=== PATIENT | female | born 1955 | race African-American/Black ===

== ENCOUNTER 2016-08-07 11:56 | Emergency (ER) | payer OTHER ==
--- NOTE | 2016-08-07 12:21 | ER Document Report ---
ED Medical Screen (RME) - General Stated Complaint: LEFT ANKLE PAIN Notes: 61 yo female c/o left ankle pain since falling [place]. Brought to ED by mobile crisis for concerns of patient safety. patient reports people breaking in home, taking things. 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 was recently placed in assisted in April, pt presently lives alone. TRAVEL OUTSIDE OF THE [place] IN LAST 30 DAYS: No - Related Data Allergies/Adverse Reactions: egg [Egg] Allergy (Verified 05/15/16 13:47) Penicillins Allergy (Verified 05/15/16 13:47) Past Medical History - Past Medical History Cardiac Medical History: Reports: Hx Hypertension Denies: Hx Coronary Artery Disease, Hx DVT, Hx Heart Attack, Hx Hypercholesterolemia, Hx Pulmonary Embolism Pulmonary Medical History: Reports: Hx COPD Neurological Medical History: Denies: Hx Seizures Endocrine Medical History: Reports: Hx Diabetes Mellitus Type 2, Hx Hypothyroidism. Denies: Hx Hyperthyroidism Renal/ Medical History: Reports: Hx Kidney Stones Malignancy Medical History: Reports: Hx Colorectal Cancer, Hx Lung Cancer GI Medical History: Denies: Hx Cirrhosis, Hx Gastroesophageal Reflux Disease, Hx Hepatitis Musculoskeltal Medical History: Reports Hx Arthritis Skin Medical History: Denies Hx Eczema, Denies Hx Psoriasis Infectious Medical History: Denies: Hx Hepatitis Past Surgical History: Reports: Hx Bowel Surgery, Hx Section - x2, Hx Hysterectomy, Hx Thyroid Surgery - Thyroidectomy - Immunizations Hx Diphtheria, Pertussis, Tetanus Vaccination: Yes Physical Exam - Vital signs Vitals: Temp Pulse Resp BP Pulse Ox 98.2 F 74 18 139/81 H 98 08/07/16 12:13 08/07/16 12:13 08/07/16 12:13 08/07/16 12:13 08/07/16 12:13 Course - Vital Signs Vital signs: Temp Pulse Resp BP Pulse Ox 98.2 F 74 18 139/81 H 98 08/07/16 12:13 08/07/16 12:13 08/07/16 12:13 08/07/16 12:13 08/07/16 12:13
--- NOTE | 2016-08-07 14:55 | EKG REPORT ---
SEVERITY:- ABNORMAL ECG - A-FLUTTER/FIBRILLATION W/ COMPLETE AV BLOCK LOW VOLTAGE THROUGHOUT : Confirmed by: Magnolia Arnold MD 07-Aug-2016 14:55:17
[2016-08-07 15:34] LABS: ABSOLUTE BASOPHILS # (AUTO) 0.1 10^3/uL (0.0-0.2); ABSOLUTE EOSINOPHILS # (AUTO) 0.2 10^3/uL (0.0-0.6); ABSOLUTE LYMPHOCYTES (AUTO) 2.8 10^3/uL (0.5-4.7); ABSOLUTE MONOCYTES (AUTO) 0.7 10^3/uL (0.1-1.4); ABSOLUTE NEUT (AUTO) 6.3 10^3/uL (1.7-8.2); EOSINOPHILS % (AUTO) 1.8 % (0-6); HEMATOCRIT 46.7 % (36.0-47.0); HEMOGLOBIN 14.9 g/dL (12.0-15.5); LYMPHOCYTES % (AUTO) 28.2 % (13-45); MEAN CORPUSCULAR HEMOGLOBIN 29.7 pg (27.0-33.4); MEAN CORPUSCULAR VOLUME 93 fl (80-97); MONOCYTES % (AUTO) 7.1 % (3-13); RED BLOOD COUNT 5.04 10^6/uL (3.72-5.28); RED CELL DISTRIBUTION WIDTH 14.5 % (11.5-14.0); SEGMENTED NEUTROPHILS % (AUTO) 61.9 % (42-78); WHITE BLOOD COUNT 10.1 10^3/uL (4.0-10.5)
[2016-08-07 15:46] LABS: ALANINE AMINOTRANSFERASE 27 U/L (9-52); ALBUMIN 4.5 g/dL (3.5-5.0); ALCOHOL < 10 mg/dL (NONE DETECTED); ALKALINE PHOSPHATASE 100 U/L (38-126); ANION GAP 12 (5-19); ASPARTATE AMINO TRANSFERASE 25 U/L (14-36); BILIRUBIN,TOTAL 0.6 mg/dL (0.2-1.3); BLOOD UREA NITROGEN 8 mg/dL (7-20); CALCIUM 10.5 mg/dL (8.4-10.2); CARBON DIOXIDE 25 mmol/L (22-30); CHLORIDE 106 mmol/L (98-107); GLUCOSE 87 mg/dL (75-110); POTASSIUM 4.6 mmol/L (3.6-5.0); SODIUM 143.4 mmol/L (137-145); TOTAL PROTEIN 7.7 g/dL (6.3-8.2)
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
[2016-08-07 17:52] LABS: APPEARANCE,URINE CLEAR; BILIRUBIN,URINE NEGATIVE (NEGATIVE); GLUCOSE, URINE NEGATIVE (NEGATIVE); KETONES,URINE NEGATIVE (NEGATIVE); LEUKOCYTE ESTERASE,URINE NEGATIVE (NEGATIVE); NITRITE,URINE NEGATIVE (NEGATIVE); PROTEIN,URINE NEGATIVE (NEGATIVE); URINE SPECIFIC GRAVITY 1.009; UROBILINOGEN,URINE NEGATIVE mg/dL (<2.0)
[2016-08-07 18:08] LABS: URINE BARBITURATES SCREEN NEGATIVE; URINE METHADONE SCREEN NEGATIVE; URINE OPIATES LOW NEGATIVE; URINE PHENCYCLIDINE SCREEN NEGATIVE
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
[2016-08-08] MEDS: DIVALPROEX SODIUM 250 MG TABLET.DR PO SCH (18:50)
--- NOTE | 2016-08-08 19:54 | ER Document Report ---
Doctor's Note Notes: 08/08/16 19:52 Patient has no physical complaints and is pleasant and cooperative with this examiner. She does also medially however begin discussing the people in her house that she thinks are trying to kill her. She has expressed no desire to kill herself denies any audio hallucinations and does not appear to have a homicidal ideations directed against any actual person. I'm concerned however that her hallucinations do pose a threat to others and I concur with mental health provider that we keep her here on IVC papers either until the hallucinations resolve or she can be discharged in the care of someone that can take responsibility for her and also remove any firearms from the house.
[2016-08-08] MEDS: BUSPIRONE HCL 10 MG TABLET PO SCH (23:55)
[2016-08-09] MEDS ORDERED: ACETAMINOPHEN 325 MG TABLET PO ONE ×2 (01:01→06:10)
[2016-08-09] MEDS: BUSPIRONE HCL 10 MG TABLET PO SCH ×2 (01:14→23:00)
[2016-08-09] MEDS: DIVALPROEX SODIUM 250 MG TABLET.DR PO SCH ×2 (09:49→18:24)
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
--- NOTE | 2016-08-09 15:58 | ER Document Report ---
Doctor's Note Notes: 08/09/16 15:58 Rounds: Chart reviewed and patient interviewed. Patient is being evaluated for mental status changes, paranoia, delusions, hallucinations. Vital signs have all been essentially normal. Lab studies have been essentially normal as well. Patient appears to be medically stable for transfer or discharge. Mental health has assessed the patient feels her problem is not psychiatric and have signed off on the case. I do not feel comfortable making a disposition of this patient based upon what I know at this time. Have spoken to mental health who will be here tomorrow, as will I, and hopefully we will resolve a disposition for this patient at that time. I am told that this patient's son is driving here from [place], [facility]. Faisal Bernal M.D.
[2016-08-10] MEDS: DIVALPROEX SODIUM 250 MG TABLET.DR PO SCH (11:52)
[2016-08-10 14:26] VITALS: BP 133/80
--- NOTE | 2016-08-10 14:28 | ER Document Report ---
Doctor's Note Notes: 08/10/16 14:25 Rounds: Chart reviewed and patient interviewed. Patient seems to be very lucid this morning. Carries on a normal conversation, answering questions appropriately. Vital signs are all normal. No new lab studies. Patient appears to be stable for transfer or discharge. Patient's son has arrived in [place] from [place]. We have worked out a discharge plan that has the son taking this patient to [place] to live with her sister there. Faisal Bernal M.D.
== END 2016-08-10 14:27 | disposition home or self-care (01) ==
LOC: ER 11:56
DX: F22 Delusional disorders (principal); M79.673 Pain in unspecified foot; M25.572 Pain in left ankle and joints of left foot; I10 Essential (primary) hypertension; J44.9 Chronic obstructive pulmonary disease, unspecified; E11.9 Type 2 diabetes mellitus without complications; Z85.118 Personal history of other malignant neoplasm of bronchus and lung; Z85.048 Personal history of other malignant neoplasm of rectum, rectosigmoid junction, and anus; Z88.0 Allergy status to penicillin; Z91.012 Allergy to eggs
CPT/HCPCS: 36415; 70450; 80053; 80307; 81001; 84443; 85025; 93005; 93010; 99285

== ENCOUNTER → 2017-01-03 | Outpatient (CLI) | payer OTHER ==
--- NOTE | 2017-01-06 13:50 | EEG PRO FEE REPORT ---
EEG INTERPRETATION PATIENT NAME: CHESTER MAURICIO ROOM#: ORDER#: [id number] DATE OF STUDY: 01/03/2017 : 1955 REFERRING MD: GIBRAN HODGE M.D. DIAGNOSIS: Dizziness REPORT This is a 16 channel EEG recording with a channel of EKG done during wakefulness, hyperventilation, photic stimulation, and early stages of sleep. Moderate artifact seen throughout the tracing. The background activity is 8-9 cycles per second, well formed and reactive alpha best seen in the posterior electrodes; beta 18-22 cycles per second, intermittent, nonlocalized or sustained slower forms seen. Hyperventilation, photic stimulation did not alter the tracing significantly more slowing seen as patient goes to early stages of sleep. IMPRESSION This EEG is within normal limits. INTERPRETING PHYSICIAN: MAHI MALIN M.D. /: MTEFETTA TT: 1345 ID: [id number] /: [id number] TD: [id number] JOB: [id number] cc:Keegan GOLDEN M.D. >
== END ==
LOC: NEURO 12:39
PROVIDERS: ATTEND Pediatrics
DX: R29.6 Repeated falls (principal); R42 Dizziness and giddiness
CPT/HCPCS: 95819

== ENCOUNTER 2018-02-28 23:15 | Emergency (ER) | payer OTHER ==
[2018-03-01] MEDS ORDERED: ACETAMINOPHEN 325 MG TABLET PO ONE (01:18)
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
[2018-03-01 02:19] VITALS: BP 119/74
== END 2018-03-01 02:17 | disposition home or self-care (01) ==
LOC: ER 23:15
DX: S51.812A Laceration without foreign body of left forearm, initial encounter (principal); S51.811A Laceration without foreign body of right forearm, initial encounter; S41.011A Laceration without foreign body of right shoulder, initial encounter; S00.81XA Abrasion of other part of head, initial encounter; Y00.XXXA Assault by blunt object, initial encounter; Y92.009 Unspecified place in unspecified non-institutional (private) residence as the place of occurrence of the external cause; R51 Headache; I10 Essential (primary) hypertension; J44.9 Chronic obstructive pulmonary disease, unspecified; Z85.048 Personal history of other malignant neoplasm of rectum, rectosigmoid junction, and anus; Z85.118 Personal history of other malignant neoplasm of bronchus and lung; Z91.012 Allergy to eggs; Z88.0 Allergy status to penicillin
CPT/HCPCS: 99284

== ENCOUNTER 2018-11-03 23:59 | Emergency (ER) | payer OTHER ==
[2018-11-04] MEDS ORDERED: PANTOPRAZOLE SODIUM 40 MG VIAL IV ONE (01:55)
[2018-11-04] MEDS ORDERED: ONDANSETRON HCL INJ/PF 4 MG/2 ML SDV IV ONE (01:55)
[2018-11-04] MEDS ORDERED: NORMAL SALINE 500 ML IV ONE (01:55)
[2018-11-04 02:32] LABS: HEMATOCRIT 47.1 % (36.0-47.0); HEMOGLOBIN 15.7 g/dL (12.0-15.5); MEAN CORPUSCULAR HEMOGLOBIN 31.8 pg (27.0-33.4); MEAN CORPUSCULAR HGB CONC 33.3 g/dL (32.0-36.0); MEAN CORPUSCULAR VOLUME 95 fl (80-97); PLATELET COUNT 243 10^3/uL (150-450); RED BLOOD COUNT 4.94 10^6/uL (3.72-5.28); RED CELL DISTRIBUTION WIDTH 13.8 % (11.5-14.0); WHITE BLOOD COUNT 16.7 10^3/uL (4.0-10.5)
[2018-11-04 02:53] LABS: ABSOLUTE LYMPHOCYTES# (MANUAL) 1.2 10^3/uL (0.5-4.7); ABSOLUTE MONOCYTES # (MANUAL) 0.3 10^3/uL (0.1-1.4); ABSOLUTE NEUTROPHILS# (MANUAL) 15.2 10^3/uL (1.7-8.2); BASOPHILS % (MANUAL) 0 % (0-2); EOSINOPHILS % (MANUAL) 0 % (0-6); LYMPHOCYTES % (MANUAL) 7 % (13-45); MONOCYTES % (MANUAL) 2 % (3-13); SEGMENTED NEUTROPHILS % (MAN) 91 % (42-78); TOTAL CELLS COUNTED 100
[2018-11-04 02:54] LABS: PLATELET COMMENT ADEQUATE; RBC MORPHOLOGY COMMENT NORMO-CYTIC/CHROMIC
[2018-11-04 02:58] LABS: ALANINE AMINOTRANSFERASE 41 U/L (9-52); ALBUMIN 4.2 g/dL (3.5-5.0); ALKALINE PHOSPHATASE 71 U/L (38-126); ANION GAP 11 (5-19); ASPARTATE AMINO TRANSFERASE 52 U/L (14-36); BILIRUBIN,DIRECT 0.4 mg/dL (0.0-0.4); BILIRUBIN,TOTAL 0.5 mg/dL (0.2-1.3); BLOOD UREA NITROGEN 13 mg/dL (7-20); CALCIUM 10.5 mg/dL (8.4-10.2); CARBON DIOXIDE 22 mmol/L (22-30); CHLORIDE 108 mmol/L (98-107); GLUCOSE 215 mg/dL (75-110); LIPASE 196.3 U/L (23-300); SODIUM 140.9 mmol/L (137-145); TOTAL PROTEIN 7.5 g/dL (6.3-8.2)
--- NOTE | 2018-11-04 04:03 | RADIOLOGY REPORT (SQ) ---
EXAM DESCRIPTION: US ABDOMEN DOPPLER LIMITED COMPLETED DATE/TME: 11/04/2018 03:07 CLINICAL HISTORY: 63 years, Female, RUQ abdominal pain COMPARISON: None. TECHNIQUE: Grayscale and color images of the abdomen LIMITATIONS: None. FINDINGS: The visualized portions of the pancreas, bowel aorta, and IVC appear unremarkable. The liver demonstrates increased echotexture. The liver is normal in shape measures 15 cm in size. The main portal vein is patent and demonstrates normal hepatopedal flow. The gallbladder is filled with stones with a wall echo shadow sign. The gallbladder wall measures up to 3 mm in thickness. No sonographic Aponte sign was elicited. The common bile duct is normal in caliber measuring up to 3 mm in diameter. The right kidney measures 10.8 x 3.9 x 4.9 cm. No hydronephrosis. IMPRESSION: Cholelithiasis. Fatty liver. copyright 2010 [employer]- All Rights Reserved
--- NOTE | 2018-11-04 04:19 | ER Document Report ---
ED General - General Chief Complaint: Abdominal Pain Stated Complaint: ABDOMINAL PAIN Time Seen by Provider: 11/04/18 01:44 Primary Care Provider: VELASQUEZ,ZARA [Primary Care Provider] - Follow up as needed TRAVEL OUTSIDE OF THE [place] IN LAST 30 DAYS: No - Related Data Allergies/Adverse Reactions: egg [Egg] Allergy (Verified 02/28/18 23:21) Penicillins Allergy (Verified 02/28/18 23:21) Past Medical History - Social History Smoking Status: Current Some Day Smoker Frequency of alcohol use: None Drug Abuse: None Family History: Reviewed & Not Pertinent Patient has suicidal ideation: No Patient has homicidal ideation: No - Past Medical History Cardiac Medical History: Reports: Hx Hypertension Denies: Hx Coronary Artery Disease, Hx DVT, Hx Heart Attack, Hx Hypercholesterolemia, Hx Pulmonary Embolism Pulmonary Medical History: Reports: Hx COPD Neurological Medical History: Denies: Hx Seizures Endocrine Medical History: Reports: Hx Diabetes Mellitus Type 2, Hx Hy pothyroidism. Denies: Hx Hyperthyroidism Renal/ Medical History: Reports: Hx Kidney Stones. Denies: Hx Peritoneal Dialysis Malignancy Medical History: Reports: Hx Colorectal Cancer, Hx Lung Cancer GI Medical History: Denies: Hx Cirrhosis, Hx Gastroesophageal Reflux Disease, Hx Hepatitis Musculoskeletal Medical History: Reports Hx Arthritis Skin Medical History: Denies Hx Eczema, Denies Hx Psoriasis Infectious Medical History: Denies: Hx Hepatitis Past Surgical History: Reports: Hx Bowel Surgery, Hx Section - x2, Hx Hysterectomy, Hx Thyroid Surgery - Thyroidectomy - Immunizations Hx Diphtheria, Pertussis, Tetanus Vaccination: Yes Physical Exam - Vital signs Vitals: Temp Pulse Resp BP Pulse Ox 98.1 F 115 H 20 145/97 H 94 11/04/18 00:42 11/04/18 00:42 11/04/18 00:42 11/04/18 00:42 11/04/18 00:42 Course - Re-evaluation Re-evalutation: 11/04/18 04:20 She has pain is resolved. Her nausea is gone. She is drinking water without any difficulty. She does have leukocytosis and some gallstones however her pain is resolved and she is tolerating p.o. and she has no evidence of cholecystitis on her ultrasound. I therefore feel she is safe to be discharged home. I talked her length about her gallstones and how this most likely this will cause her pain tonight. Informed her that she must avoid all fried foods and fatty foods. Informed her that she must follow-up with the surgery clinic. I told her that the surgery clinic phone number is under the name Dr. Patiño on her discharge paperwork. Encouraged to return to ER immediately if she has fevers, current pain, vomiting, or if she feels unwell in any way. Patient agrees with plan will be discharged home. Dictation of this chart was performed using voice recognition software; therefore, there may be some unintended grammatical errors. - Vital Signs Vital signs: Temp Pulse Resp BP Pulse Ox 98.1 F 115 H 20 145/97 H 94 11/04/18 00:42 11/04/18 00:42 11/04/18 00:42 11/04/18 00:42 11/04/18 00:42 - Laboratory Result Diagrams: 11/04/18 02:15 11/04/18 02:15 Laboratory results interpreted by me: 11/04/18 11/04/18 02:15 02:15 WBC 16.7 H Hgb 15.7 H Hct 47.1 H Seg Neuts % (Manual) 91 H Lymphocytes % (Manual) 7 L Monocytes % (Manual) 2 L Abs Neuts (Manual) 15.2 H Chloride 108 H Glucose 215 H Calcium 10.5 H AST 52 H Discharge - Discharge Clinical Impression: Cholelithiasis Qualifiers: Cholelithiasis location: gallbladder Cholecystitis presence: without cholecystitis Biliary obstruction: without biliary obstruction Qualified Code(s): K80.20 - Calculus of gallbladder without cholecystitis without obstruction Abdominal pain Qualifiers: Abdominal location: epigastric Qualified Code(s): R10.13 - Epigastric pain Condition: Good Disposition: HOME, SELF-CARE Additional Instructions: Your ultrasound shows that you have multiple stones in your gallbladder. Your gallbladder should be taken out electively. I have provided the phone number to the surgery clinic. The number is under the name "Dr. Rambo Patiño" in your discharge paperwork. Please call this number later today to make a follow- up appointment. You must avoid any foods that have fat. This includes fried foods. This includes most meats. Some fish are okay to eat. Please have a very low threshold to return to the ER if you have fevers, recurrent pain, recurrent vomiting, or if you feel unwell as the symptoms would be signs of an inflamed or infected gallbladder which would need to be removed immediately. Prescriptions: Ondansetron [Zofran Odt 4 mg Tablet] 1 tab PO Q4H PRN #15 tab.rapdis PRN Reason: For Nausea/Vomiting Referrals: RAMBO PATIÑO MD [ACTIVE STAFF] - Follow up in 3-5 days (call office this morning to make a follow up appointment.)
[2018-11-04 04:39] VITALS: BP 125/75
== END 2018-11-04 04:45 | disposition home or self-care (01) ==
LOC: ER 23:59
DX: K80.20 Calculus of gallbladder without cholecystitis without obstruction (principal); R10.13 Epigastric pain; R10.9 Unspecified abdominal pain; R11.0 Nausea; D72.829 Elevated white blood cell count, unspecified; F17.200 Nicotine dependence, unspecified, uncomplicated; I10 Essential (primary) hypertension; J44.9 Chronic obstructive pulmonary disease, unspecified; E11.9 Type 2 diabetes mellitus without complications
CPT/HCPCS: 99284; 96374; 96375; 36415; 83690; 85025; 80053; 76705; 93976; S0164; J2405; J7040; 96361

== ENCOUNTER 2019-08-12 15:38 | Emergency (ER) | payer OTHER ==
[2019-08-12] MEDS ORDERED: ASPIRIN 81 MG TABLET, CHEWABLE PO ONE (17:00)
--- NOTE | 2019-08-12 17:00 | ER Document Report ---
ED Medical Screen (RME) - General Chief Complaint: Headache Stated Complaint: BLEEDING FROM RIGHT EAR/HEADACHE Time Seen by Provider: 08/12/19 16:54 Primary Care Provider: VELASQUEZ,ZARA [Primary Care Provider] - Follow up as needed Mode of Arrival: Ambulatory Information source: Patient Notes: 64-year-old female presented to ED for right ear pain and bleeding x3 days. She states she also has a headache to the whole right side of her head down her neck. She states she also has chest pain with shortness of breath that comes and goes for the last couple days. She is states she has had this intermittently for about a year but has not got it checked out recently. Patient states she is seen at the [place] [facility]. She is alert oriented respirations regular nonlabored at this time. She does have a right otitis media. I have greeted and performed a rapid initial assessment of this patient. A comprehensive ED assessment and evaluation of the patient, analysis of test results and completion of medical decision making process will be conducted by an additional ED providers. TRAVEL OUTSIDE OF THE [place] IN LAST 30 DAYS: No - Related Data Allergies/Adverse Reactions: egg [Egg] Allergy (Verified 02/28/18 23:21) Penicillins Allergy (Verified 02/28/18 23:21) Past Medical History - Past Medical History Cardiac Medical History: Reports: Hx Hypertension Denies: Hx Coronary Artery Disease, Hx DVT, Hx Heart Attack, Hx Hyperch olesterolemia, Hx Pulmonary Embolism Pulmonary Medical History: Reports: Hx COPD Neurological Medical History: Denies: Hx Seizures Endocrine Medical History: Reports: Hx Diabetes Mellitus Type 2, Hx Hypothyroidism. Denies: Hx Hyperthyroidism Renal/ Medical History: Reports: Hx Kidney Stones. Denies: Hx Peritoneal Dialysis Malignancy Medical History: Reports: Hx Colorectal Cancer, Hx Lung Cancer GI Medical History: Denies: Hx Cirrhosis, Hx Gastroesophageal Reflux Disease, Hx Hepatitis Musculoskeltal Medical History: Reports Hx Arthritis Skin Medical History: Denies Hx Eczema, Denies Hx Psoriasis Infectious Medical History: Denies: Hx Hepatitis Past Surgical History: Reports: Hx Bowel Surgery, Hx Section - x2, Hx Hysterectomy, Hx Thyroid Surgery - Thyroidectomy - Immunizations Hx Diphtheria, Pertussis, Tetanus Vaccination: Yes Physical Exam - Vital signs Vitals: Temp Pulse Resp BP Pulse Ox 98.0 F 91 18 151/89 H 94 08/12/19 15:43 08/12/19 15:43 08/12/19 15:43 08/12/19 15:43 08/12/19 15:43 Course - Vital Signs Vital signs: Temp Pulse Resp BP Pulse Ox 98.0 F 91 18 151/89 H 94 08/12/19 15:43 08/12/19 15:43 08/12/19 15:43 08/12/19 15:43 08/12/19 15:43 Doctor's Discharge - Discharge [facility]errals[facility] [Primary [facility]] - Follow up as needed
[2019-08-12] MEDS ORDERED: CEFTRIAXONE INJ 1000 MG VIAL IM ONE (17:02)
[2019-08-12] MEDS ORDERED: LIDOCAINE 1% INJ-PF (10 MG/ML) 30 ML SDV INJ ONE (17:02)
--- NOTE | 2019-08-12 17:41 | RADIOLOGY REPORT (SQ) ---
EXAM DESCRIPTION: CHEST 2 VIEWS COMPLETED DATE/TIME: 08/12/2019 5:25 pm REASON FOR STUDY: chest pain COMPARISON: 2016 TECHNIQUE: Frontal and lateral radiographic views of the chest acquired. NUMBER OF VIEWS: Two view. LIMITATIONS: None. FINDINGS: LUNGS AND PLEURA: No opacities, masses or pneumothorax. No pleural effusion. MEDIASTINUM AND HILAR STRUCTURES: No masses or contour abnormalities. HEART AND VASCULAR STRUCTURES: Heart normal size. No evidence for failure. BONES: No acute findings. HARDWARE: None in the chest. OTHER: No other significant finding. IMPRESSION: NO SIGNIFICANT RADIOGRAPHIC FINDING IN THE CHEST. TECHNICAL DOCUMENTATION: JOB ID: [id number] [employer]- All Rights Reserved Reading location - IP/workstation name: [email or web address]
[2019-08-12 18:33] LABS: ABSOLUTE BASOPHILS # (AUTO) 0.1 10^3/uL (0.0-0.2); ABSOLUTE EOSINOPHILS # (AUTO) 0.2 10^3/uL (0.0-0.6); ABSOLUTE LYMPHOCYTES (AUTO) 2.6 10^3/uL (0.5-4.7); ABSOLUTE MONOCYTES (AUTO) 0.6 10^3/uL (0.1-1.4); ABSOLUTE NEUT (AUTO) 4.8 10^3/uL (1.7-8.2); BASOPHILS % (AUTO) 1.4 % (0-2); EOSINOPHILS % (AUTO) 2.4 % (0-6); HEMATOCRIT 44.3 % (36.0-47.0); HEMOGLOBIN 14.9 g/dL (12.0-15.5); LYMPHOCYTES % (AUTO) 30.9 % (13-45); MEAN CORPUSCULAR HEMOGLOBIN 31.4 pg (27.0-33.4); MEAN CORPUSCULAR HGB CONC 33.6 g/dL (32.0-36.0); MEAN CORPUSCULAR VOLUME 94 fl (80-97); MONOCYTES % (AUTO) 7.1 % (3-13); PLATELET COUNT 278 10^3/uL (150-450); RED BLOOD COUNT 4.73 10^6/uL (3.72-5.28); RED CELL DISTRIBUTION WIDTH 13.7 % (11.5-14.0); SEGMENTED NEUTROPHILS % (AUTO) 58.2 % (42-78); TOTAL CELLS COUNTED % (AUTO) 100 %; WHITE BLOOD COUNT 8.3 10^3/uL (4.0-10.5)
[2019-08-12 18:53] LABS: ALBUMIN 4.2 g/dL (3.5-5.0); ALKALINE PHOSPHATASE 66 U/L (38-126); ANION GAP 10 (5-19); ASPARTATE AMINO TRANSFERASE 38 U/L (14-36); BILIRUBIN,DIRECT 0.2 mg/dL (0.0-0.4); BILIRUBIN,TOTAL 0.4 mg/dL (0.2-1.3); BLOOD UREA NITROGEN 9 mg/dL (7-20); CALCIUM 9.8 mg/dL (8.4-10.2); CARBON DIOXIDE 25 mmol/L (22-30); CHLORIDE 104 mmol/L (98-107); GLUCOSE 148 mg/dL (75-110); POTASSIUM 4.4 mmol/L (3.6-5.0); TOTAL PROTEIN 7.4 g/dL (6.3-8.2)
[2019-08-12] MEDS ORDERED: AZITHROMYCIN 250 MG TABLET PO ONE (22:05)
--- NOTE | 2019-08-12 22:08 | ER Document Report ---
ED General - General Chief Complaint: Chest Pain Stated Complaint: BLEEDING FROM RIGHT EAR/HEADACHE Time Seen by Provider: 08/12/19 16:54 [facility] [[facility]] - Follow up as needed Mode of Arrival: Ambulatory Information source: Patient TRAVEL OUTSIDE OF THE [place] IN LAST 30 DAYS: No - HPI Onset: Other - over the last 3 days Onset/Duration: Sudden Quality of pain: Pressure, Throbbing - right side of head and right ear Severity: Moderate Pain Level: 3 Associated symptoms: Headache - right sided, Other - bleeding from right ear, right ear pain Exacerbated by: Denies Relieved by: Denies Similar symptoms previously: No Recently seen / treated by doctor: No Notes: 64 year old female with a history of COPD, DM, HTN,Seizures, Hypothyroidism, Colon Ca, Lung Ca here for 3 days of a right sided headache, right ear pain, and bleeding from her right ear. The patient denies trauma to her ear, recent swimming, recent altitude changes. The patient says once her ear started bleeding she did stick a Q Tip in to get some blood out. The patient denies hearing loss. The patient does not normally have headaches. The patient denies vision changes, nausea, vomiting, dizziness, fevers, chills, sweats. The patient also has been having off and on chest pains for years but this is unrelated. The patient knows she has gallstones and she thinks this could be causing her chronic chest pains. - Related Data Allergies/Adverse Reactions: egg [Egg] Allergy (Verified 02/28/18 23:21) Penicillins Allergy (Verified 02/28/18 23:21) Past Medical History - General Information source: Patient - Social History Smoking Status: Never Smoker Frequency of alcohol use: None Drug Abuse: None Family History: Reviewed & Not Pertinent Patient has suicidal ideation: No Patient has homicidal ideation: No - Past Medical History Cardiac Medical History: Reports: Hx Hypertension Denies: Hx Coronary Artery Disease, Hx DVT, Hx Heart Attack, Hx Hyperc holesterolemia, Hx Pulmonary Embolism Pulmonary Medical History: Reports: Hx COPD Neurological Medical History: Denies: Hx Seizures Endocrine Medical History: Reports: Hx Diabetes Mellitus Type 2, Hx Hypothyroidism. Denies: Hx Hyperthyroidism Renal/ Medical History: Reports: Hx Kidney Stones. Denies: Hx Peritoneal Dialysis Malignancy Medical History: Reports: Hx Colorectal Cancer, Hx Lung Cancer GI Medical History: Denies: Hx Cirrhosis, Hx Gastroesophageal Reflux Disease, Hx Hepatitis Musculoskeletal Medical History: Reports Hx Arthritis Skin Medical History: Denies Hx Eczema, Denies Hx Psoriasis Infectious Medical History: Denies: Hx Hepatitis Past Surgical History: Reports: Hx Bowel Surgery, Hx Section - x2, Hx Hysterectomy, Hx Thyroid Surgery - Thyroidectomy - Immunizations Hx Diphtheria, Pertussis, Tetanus Vaccination: Yes Review of Systems - Review of Systems Constitutional: No symptoms reported EENT: Ear pain - with bleeding from right ear Cardiovascular: Chest pain Respiratory: No symptoms reported Gastrointestinal: No symptoms reported Genitourinary: No symptoms reported Female Genitourinary: No symptoms reported Musculoskeletal: No symptoms reported Skin: No symptoms reported Hematologic/Lymphatic: No symptoms reported Neurological/Psychological: Headaches -: Yes All other systems reviewed and negative Physical Exam - Vital signs Vitals: Temp Pulse Resp BP Pulse Ox 98.0 F 91 18 151/89 H 94 08/12/19 15:43 08/12/19 15:43 08/12/19 15:43 08/12/19 15:43 08/12/19 15:43 - Notes Notes: GENERAL: Well-appearing, well-nourished and in no acute distress. HEAD: Atraumatic, normocephalic. EYES: Pupils equal round and reactive to light, extraocular movements intact, sclera anicteric, conjunctiva are normal. ENT: Right TM is ruptured and there is blood in her canal. Left TM is normal. Nares patent, oropharynx clear without exudates. Moist mucous membranes. NECK: Normal range of motion, supple without lymphadenopathy or JVD. LUNGS: Breath sounds clear to auscultation bilaterally and equal. No wheezes rales or rhonchi. HEART: Regular rate and rhythm without murmurs, rubs or gallops. ABDOMEN: Soft, nontender, normoactive bowel sounds. No guarding, no rebound. No masses appreciated. EXTREMITIES: Normal range of motion, no pitting or edema. No clubbing or cyanosis. NEUROLOGICAL: Cranial nerves II through XII grossly intact. Normal speech, normal gait. PSYCH: Normal mood, normal affect. SKIN: Warm, Dry, normal turgor, no rashes or lesions noted. Course - Re-evaluation Re-evalutation: 08/12/19 22:20 The patient seems to have a ruptured right tympanic membrane. This seems odd given she has had no trauma to her ear, does not swim, and has had no altitude changes. The patient may have had an ear infection she didnt know about and then it ruptured but one would think she would have pain before the bleeding. Alternatively the patient's ear canal could have been bleeding and then she ruptured her own ear drum with a Q tip. Will CT head and order ESR and Sed Rate to rule out an acute intracranial process and Temporal Arteritis. 08/12/19 23:44 Sed rate slightly elevated but CRP is moderately elevated. Patient has a right sided headache which could be from her ruptured TM. Temporal Arteritis seems unlikely since she is not having vision changes and she doesnt seem to have pain right over the temporal artery area on exam. Patient's headache improved with Fioricet. Will treat with Zpack to cover Otitis which could have caused the ruptured ear drum. Patient told to follow up with her PCP to ensure her ear drum heals and to follow up with an eye doctor ensure no vision changes from her current symptoms. Patient given short course of Fioricet for headaches. - Vital Signs Vital signs: Temp Pulse Resp BP Pulse Ox 98.6 F 59 L 20 130/90 H 100 08/12/19 20:37 08/12/19 20:37 08/12/19 23:00 08/12/19 23:00 08/12/19 23:00 - Laboratory Result Diagrams: 08/12/19 18:16 08/12/19 18:16 Laboratory results interpreted by me: 08/12/19 08/12/19 08/12/19 18:16 18:16 18:16 ESR 36 H Glucose 148 H AST 38 H C-Reactive Protein 22.6 H - EKG Interpretation by De EKG shows normal: Sinus rhythm, Hye, Intervals, QRS Complexes, ST-T Waves Rate: Normal Rhythm: NSR Additional EKG results interpreted by me: 08/12/19 22:30 Q waves in III, aVF Discharge - Discharge Clinical Impression: Ruptured tympanic membrane Qualifiers: Laterality: right Qualified Code(s): H72.91 - Unspecified perforation of tympanic membrane, right ear Headache Qualifiers: Headache type: unspecified Headache chronicity pattern: acute headache Intractability: not intractable Qualified Code(s): R51 - Headache Condition: Stable Disposition: HOME, SELF-CARE Instructions: Headache ([facility]), Perforated Eardrum ([facility]) Additional Instructions: Take antibiotics as prescribed. Follow up with your primary care doctor to ensure your ear drum has healed. USe Fioricet for headaches. Tell your doctor about your headaches. Have an eye exam if you have any vision changes. Return to an ER if worse in anyway. Prescriptions: Butalb/Acetaminophen/Caffeine [Fioricet (50-325-40 mg) Tablet] 1 tab PO Q8HP PRN #15 tab PRN Reason: Azithromycin 250 mg PO DAILY #4 tablet [facility]errals: [facility] [[facility]] - Follow up as needed
[2019-08-12] MEDS ORDERED: BUTALB/ACETAMINOPHEN/CAFFEINE 1 TAB EACH PO ONE (22:15)
--- NOTE | 2019-08-12 22:53 | RADIOLOGY REPORT (SQ) ---
CT head without contrast on 08/12/2019 at 10:14 PM CLINICAL INDICATION: Worst headache of life, bleeding from right ear TECHNIQUE: Multiple axial images are obtained throughout the head without the administration of contrast. This exam was performed according to our departmental dose-optimization program, which includes automated exposure control, adjustment of the mA and/or kV according to patient size and/or use of iterative reconstruction technique. Total DLP is 1070.38 mGy*cm. COMPARISON: 08/07/2016 FINDINGS: There is mild generalized cerebral atrophy. There is mild low density in the periventricular white matter consistent with chronic small vessel ischemic changes. There is no hydrocephalus. There is no hemorrhage. There are no abnormal extra-axial fluid collections. There is no mass, mass effect or midline shift. There is no CT evidence of acute infarct. No bony abnormality is noted. IMPRESSION: Atrophy and chronic small vessel ischemic changes with no acute intracranial abnormality.
[2019-08-12 22:54] LABS: C-REACTIVE PROTEIN 22.6 mg/L (<10.0)
[2019-08-13 00:01] VITALS: BP 135/82
--- NOTE | 2019-08-13 12:59 | EKG REPORT ---
SEVERITY:- BORDERLINE ECG - SINUS RHYTHM BORDERLINE LEFT AXIS DEVIATION CONSIDER INFERIOR INFARCT BORDERLINE R WAVE PROGRESSION, ANTERIOR LEADS : Confirmed by: Andrea Davis 13-Aug-2019 12:58:21
== END 2019-08-12 23:59 | disposition home or self-care (01) ==
LOC: ER 15:38
DX: H72.91 Unspecified perforation of tympanic membrane, right ear (principal); R51 Headache; R07.9 Chest pain, unspecified; H92.01 Otalgia, right ear; J44.9 Chronic obstructive pulmonary disease, unspecified; E11.9 Type 2 diabetes mellitus without complications; I10 Essential (primary) hypertension; E03.9 Hypothyroidism, unspecified; Z90.710 Acquired absence of both cervix and uterus; Z87.442 Personal history of urinary calculi
CPT/HCPCS: 93005; 99284; 36415; 83690; 85025; 85652; 86140; 80053; 84484; 71046; 70450; 93010; J3490

== ENCOUNTER 2020-02-26 17:34 | Emergency (ER) | payer OTHER ==
[2020-02-26] MEDS ORDERED: NORMAL SALINE 1000 ML 1,000 ML IV ONE ×2 (17:46→21:14)
--- NOTE | 2020-02-26 18:20 | ER Document Report ---
ED Blood Sugar Problem - General Mode of Arrival: Wheelchair Information source: Patient TRAVEL OUTSIDE OF THE [place] IN LAST 30 DAYS: No - HPI Onset: Other - 2 weeks Onset/Duration: Persistent Quality of pain: No pain Pain Level: Denies Associated symptoms: Confusion, Dry mucous membranes, Increased thirst, Frequent urination, Weakness. denies: Vomiting Similar symptoms previously: No Recently seen / treated by doctor: Yes <QASIM FOUNTAIN - Last Filed: 02/26/20 19:58> <ULI STREETER - Last Filed: 02/27/20 00:38> - General Chief Complaint: Urinary Frequency Stated Complaint: URINARY FREQUENCY Time Seen by Provider: 02/26/20 17:46 [facility] [[facility]] - Follow up as needed Notes: Patient was seen at an urgent care and sent here for elevated blood sugar. Patient denies any history of diabetes. Patient's blood sugar reading high on glucometer in triage. Patient complains of increased thirst and urination. Patient states that her son told her that she seemed to be somewhat confused. Patient complains of some generalized weakness. Patient denies any headache pain or pain symptoms. (QASIM FOUNTAIN) - Related Data Allergies/Adverse Reactions: egg [Egg] Allergy (Verified 02/28/18 23:21) Penicillins Allergy (Verified 02/28/18 23:21) Past Medical History - General Information source: Patient - Social History Smoking Status: Never Smoker Chew tobacco use (# tins/day): No Frequency of alcohol use: None Drug Abuse: None Lives with: Family Family History: Reviewed & Not Pertinent Pulmonary Medical History: Reports: Hx COPD, Hx Sleep Apnea Neurological Medical History: Denies: Hx Seizures Endocrine Medical History: Reports: Hx Hypothyroidism. Denies: Hx Hyperthyroidism Renal/ Medical History: Reports: Hx Kidney Stones. Denies: Hx Peritoneal Dialysis Malignancy Medical History: Reports: Hx Colorectal Cancer, Hx Lung Cancer GI Medical History: Denies: Hx Cirrhosis, Hx Gastroesophageal Reflux Disease, Hx Hepatitis Musculoskeletal Medical History: Reports Hx Arthritis Skin Medical History: Denies Hx Eczema, Denies Hx Psoriasis Infectious Medical History: Denies: Hx Hepatitis Past Surgical History: Reports: Hx Bowel Surgery, Hx Section - x2, Hx Hysterectomy, Hx Thyroid Surgery - Thyroidectomy - Immunizations Hx Diphtheria, Pertussis, Tetanus Vaccination: Yes <QASIM FOUNTAIN - Last Filed: 02/26/20 19:58> Review of Systems - Review of Systems Constitutional: Weakness. denies: Fever EENT: Other - Dry mouth Cardiovascular: No symptoms reported Respiratory: No symptoms reported. denies: Cough, Short of breath Gastrointestinal: No symptoms reported. denies: Abdominal pain, Nausea, Vomiting Genitourinary: Frequency Female Genitourinary: No symptoms reported Musculoskeletal: No symptoms reported. denies: Back pain Skin: No symptoms reported Hematologic/Lymphatic: No symptoms reported Neurological/Psychological: No symptoms reported <QASIM FOUNTAIN - Last Filed: 02/26/20 19:58> Physical Exam - General General appearance: Alert In distress: Mild - HEENT Head: Normocephalic, Atraumatic Eyes: Normal Conjunctiva: Normal Nasal: Normal Mouth/Lips: Normal Mucous membranes: Dry Neck: Normal, Supple. No: Lymphadenopathy - Respiratory Respiratory status: No respiratory distress Chest status: Nontender Breath sounds: Normal. No: Rales, Rhonchi, Stridor, Wheezing Chest palpation: Normal - Cardiovascular Rhythm: Tachycardia Heart sounds: S1 appreciated, S2 appreciated Murmur: No - Abdominal Inspection: Normal Distension: No distension Bowel sounds: Normal Tenderness: Nontender Organomegaly: No organomegaly - Back Back: Normal, Nontender - Extremities General upper extremity: Normal inspection, Normal ROM General lower extremity: Normal inspection, Normal ROM - Neurological Neuro grossly intact: Yes Cognition: Normal Bautista Coma Scale Eye Opening: Spontaneous Kistler Coma Scale Verbal: Oriented Kistler Coma Scale Motor: Obeys Commands Kistler Coma Scale Total: 15 - Psychological Associated symptoms: Normal affect, Normal mood - Skin Skin Temperature: Warm Skin Moisture: Dry Skin Color: Normal <QASIM FOUNTAIN - Last Filed: 02/26/20 19:58> - Vital signs Vitals: Temp Pulse Resp BP Pulse Ox 98.1 F 105 H 16 129/74 H 99 02/26/20 17:47 02/26/20 17:47 02/26/20 17:47 02/26/20 17:47 02/26/20 17:47 Course - Laboratory Result Diagrams: 02/26/20 19:45 02/26/20 19:45 <QASIM FOUNTAIN - Last Filed: 02/26/20 19:58> - Laboratory Result Diagrams: 02/26/20 19:45 02/26/20 22:08 <ULI STREETER - Last Filed: 02/27/20 00:38> - Re-evaluation Re-evalutation: 02/26/20 19:58 Report and handoff given to Uli Streeter [employer] (QASIM FOUNTAIN) 02/26/20 20:07 Report received on patient 02/26/20 22:30 I spoke with the patient at length. She relates no history of diabetes. She is alert and oriented answers appropriate questions and asks appropriate questions about her condition. Awaiting on patient's chemistry. Have initiated second liter of IV fluids. Will recheck Accu-Chek after second liter of fluids. VBG shows a pH of 7.34 she is not in DKA she may just be hyperglycemic as new onset diabetic. She indicates she does have a primary care provider at the [facility] that she can follow-up with. Awaiting urinalysis 02/26/20 23:45 Patient's glucose is still elevated after first liter normal saline. Second liter is now infusing. Still awaiting urinalysis to rule out infection for disposition. Nursing is aware. Other chemistry lab work does not show abnormality suggesting DKA. Will likely be able to be discharged as she is lucid here, oriented x3, will start on metformin, follow-up PCP for nutritional testing and information as well as further management of new onset diabetes 02/27/20 00:35 Patient's blood glucose levels continue to decrease. Will start patient on metformin we will keep her on this once daily as we do not know where her baseline blood glucose levels are. She has a primary care provider she can follow-up with on Friday for further management and evaluation of her diabetes including obtaining Accu-Chek machine, further instruction on checking blood sugars and nutrition. We will keep patient on Macrobid for UTI given her penicillin allergy. 02/27/20 00:36 (ULI STREETER) - Vital Signs Vital signs: Temp Pulse Resp BP Pulse Ox 98.1 F 105 H 17 109/64 97 02/26/20 17:47 02/26/20 17:47 02/26/20 23:01 02/26/20 23:01 02/26/20 21:01 - Laboratory Laboratory results interpreted by me: 02/26/20 02/26/20 02/26/20 19:45 19:45 21:02 RBC 5.37 H Hgb 17.2 H Hct 52.8 H MCV 98 H Sodium Glucose POC Glucose 533 H* Hemoglobin A1c % > 14.0 H AST ALT Urine Glucose (UA) Urine Ketones Ur Leukocyte Esterase Urine Ascorbic Acid 02/26/20 02/26/20 22:08 23:50 RBC Hgb Hct MCV Sodium 136.6 L Glucose 473 H* POC Glucose Hemoglobin A1c % AST 51 H ALT 45 H Urine Glucose (UA) >=500 H Urine Ketones 20 H Ur Leukocyte Esterase TRACE H Urine Ascorbic Acid 20 H Discharge <QASIM FOUNTAIN - Last Filed: 02/26/20 19:58> <ULI STREETER - Last Filed: 02/27/20 00:38> - Discharge Clinical Impression: Hyperglycemia due to diabetes mellitus, Diabetes mellitus, new onset UTI (urinary tract infection) Qualifiers: Urinary tract infection type: acute cystitis Hematuria presence: with hematuria Qualified Code(s): N30.01 - Acute cystitis with hematuria Condition: Stable Disposition: HOME, SELF-CARE Additional Instructions: Take the Macrobid to treat the urinary infection. Take the metformin daily to help decrease her blood glucose levels. Limit foods with extra sugars which may include soda, pie, cookies, breads and cakes. It is very important that you fo llow-up with your primary care provider on Friday for further evaluation and management of your diabetes. They may change your medications once they evaluate you in the office. They should prescribe you an Accu-Chek and give you further instruction on how to check your blood glucose levels. Ask your primary care provider for a referral to a nutrition therapist Prescriptions: Metformin HCl [Glucophage 500 mg Tablet] 500 mg PO DAILY #30 tablet Nitrofurantoin Monohyd/M-Cryst [Macrobid 100 mg Capsule] 100 mg PO BID #14 cap [facility]errals: [facility] [[facility]] - Follow up as needed
[2020-02-26 20:02] LABS: VENOUS BLOOD BASE EXCESS 2.8 mmol/L; VENOUS BLOOD HCO3 30.6 mmol/L (20-32); VENOUS BLOOD PCO2 58.7 mmHg (35-63); VENOUS BLOOD PH 7.34 (7.30-7.42)
[2020-02-26 20:11] LABS: ABSOLUTE BASOPHILS # (AUTO) 0.1 10^3/uL (0.0-0.2); ABSOLUTE EOSINOPHILS # (AUTO) 0.1 10^3/uL (0.0-0.6); ABSOLUTE LYMPHOCYTES (AUTO) 1.8 10^3/uL (0.5-4.7); ABSOLUTE MONOCYTES (AUTO) 0.5 10^3/uL (0.1-1.4); ABSOLUTE NEUT (AUTO) 5.5 10^3/uL (1.7-8.2); BASOPHILS % (AUTO) 1.1 % (0-2); EOSINOPHILS % (AUTO) 0.7 % (0-6); HEMATOCRIT 52.8 % (36.0-47.0); HEMOGLOBIN 17.2 g/dL (12.0-15.5); LYMPHOCYTES % (AUTO) 22.9 % (13-45); MEAN CORPUSCULAR HGB CONC 32.6 g/dL (32.0-36.0); MEAN CORPUSCULAR VOLUME 98 fl (80-97); MONOCYTES % (AUTO) 6.1 % (3-13); RED BLOOD COUNT 5.37 10^6/uL (3.72-5.28); RED CELL DISTRIBUTION WIDTH 13.6 % (11.5-14.0); SEGMENTED NEUTROPHILS % (AUTO) 69.2 % (42-78); TOTAL CELLS COUNTED % (AUTO) 100 %; WHITE BLOOD COUNT 7.9 10^3/uL (4.0-10.5)
[2020-02-26 20:28] LABS: PLATELET COUNT 219 10^3/uL (150-450)
[2020-02-26 23:09] LABS: ALBUMIN 3.9 g/dL (3.5-5.0); ALKALINE PHOSPHATASE 104 U/L (38-126); ANION GAP 9 (5-19); ASPARTATE AMINO TRANSFERASE 51 U/L (14-36); BILIRUBIN,TOTAL 0.4 mg/dL (0.2-1.3); BLOOD UREA NITROGEN 14 mg/dL (7-20); CALCIUM 9.5 mg/dL (8.4-10.2); CARBON DIOXIDE 28 mmol/L (22-30); CHLORIDE 100 mmol/L (98-107); POTASSIUM 4.5 mmol/L (3.6-5.0); TOTAL PROTEIN 6.9 g/dL (6.3-8.2)
--- NOTE | 2020-02-26 23:15 | EKG REPORT ---
SEVERITY:- BORDERLINE ECG - SINUS RHYTHM LEFT AXIS DEVIATION : Confirmed by: Phil Ramirez MD 26-Feb-2020 23:14:53
[2020-02-26 23:35] LABS: GLUCOSE 473 mg/dL (75-110)
[2020-02-27 00:15] LABS: APPEARANCE,URINE CLEAR; BILIRUBIN,URINE NEGATIVE (NEGATIVE); COLOR,URINE STRAW; GLUCOSE, URINE >=500 mg/dL (NEGATIVE); KETONES,URINE 20 mg/dL (NEGATIVE); LEUKOCYTE ESTERASE,URINE TRACE (NEGATIVE); NITRITE,URINE NEGATIVE (NEGATIVE); PROTEIN,URINE NEGATIVE (NEGATIVE); URINE SPECIFIC GRAVITY 1.036; UROBILINOGEN,URINE NEGATIVE mg/dL (<2.0)
[2020-02-27] MEDS ORDERED: NITROFURANTOIN MONOHYD/M-CRYST 100 MG CAPSULE PO ONE (00:29)
[2020-02-27] MEDS ORDERED: METFORMIN HCL 500 MG TABLET PO ONE (00:29)
[2020-02-27 01:24] VITALS: BP 128/76
== END 2020-02-27 02:17 | disposition home or self-care (01) ==
LOC: ER 17:34
DX: E11.65 Type 2 diabetes mellitus with hyperglycemia (principal); N30.01 Acute cystitis with hematuria; J44.9 Chronic obstructive pulmonary disease, unspecified; R53.1 Weakness; R68.2 Dry mouth, unspecified; R35.0 Frequency of micturition; R00.0 Tachycardia, unspecified; Z91.012 Allergy to eggs; Z88.0 Allergy status to penicillin
CPT/HCPCS: 93005; 99284; 96360; 96361; 36415; 87086; 82962; 83735; 85025; 80053; 81001; 84484; 83036; 82803; 93010; J7030; J8499